=== PATIENT | female | born 1960 | race Caucasian/White ===

== ENCOUNTER 2022-02-18 10:57 | Emergency (ER) | payer MEDICAID, SELFPAY ==
[2022-02-18] VITALS (7 sets, daily range): BP systolic 141–179; BP diastolic 70–97; PULSE 81–101; RESP 16–20; TEMP 36.7–37.1; O2SAT 96–99; BMI 35.6; BMI 34.7
--- NOTE | 2022-02-18 11:41 | CT_ITS ---
FINAL REPORT CLINICAL HISTORY: Abdominal pain COMPARISON: None FINDINGS: CT OF THE ABDOMEN AND PELVIS WITH CONTRAST Axial CT images of the abdomen and pelvis were obtained after the administration of oral and iv contrast. Coronal reformatted images were also obtained and reviewed.This study was performed with techniques to keep radiation doses as low as reasonably achievable (ALARA). Individualized dose reduction techniques using automated exposure control or adjustment of mA and/or kV according to the patient's size were employed. Abdomen: The lung bases are clear. The heart is normal in size. The liver has an unremarkable appearance, without evidence of mass or biliary ductal dilatation. Gallstones are noted in the gallbladder. The spleen is unremarkable. No adrenal mass is present. The pancreas has an unremarkable appearance. The kidneys are normal, without evidence of mass or hydronephrosis. The aorta is normal in caliber. There is no free fluid or adenopathy. No mass or abnormal fluid collection is seen. Pelvis: The appendix unremarkable. The urinary bladder is unremarkable. No inflammatory process is seen. There is no evidence of mass or adenopathy. There is no evidence of bowel obstruction. IMPRESSION: Cholelithiasis. Reviewed, Interpreted and Dictated by Howard Saucedo III, MD Transcribed by Kelly Acevedo Authenticated and [facility]
--- NOTE | 2022-02-18 11:45 | HMH.EDGENADL ---
Discharge Plan Disposition Patient Disposition: Home, Self-Care Condition: Good Prescriptions Prescriptions: New chlordiazepoxide HCl 25 mg capsule 25 mg PO DIRECTED Qty: 15 0RF ondansetron 4 mg tablet,disintegrating 4 mg PO Q8H PRN (Reason: nausea and vomiting) Qty: 10 0RF Referrals Follow up/Referrals: Kimberly Diaz APRN [Primary Care Provider] - See instructions Activity Restrictions/Add. Instructions Additional Instructions/Restrictions: Chlordiazepoxide as prescribed for alcohol withdrawal. Do not drink alcohol while taking. Follow-up with primary care provider, call tomorrow to make appointment. Clinical Impressions Clinical Impression: Alcohol withdrawal syndrome Instructions Patient Instructions: DI for Drug or Alcohol Withdrawal, DI for Alcohol Use Disorder Discharge ED Provider: Junior Dinh General Adult HPI General Chief complaint: Alcohol Stated complaint: Shaking, possible gout in both legs Time Seen by Provider: 02/18/22 11:35 History of Present Illness HPI narrative: Patient states she thinks she is in alcohol withdrawal. States that she has been drinking a pint of liquor a day for the past couple of weeks and stopped drinking yesterday. Since yesterday afternoon she feels shaky, nausea and vomiting, abdominal pain, diffuse joint pains. Because of her diffuse joint pain she thinks I might be having gout attacks . States symptoms are similar to previous alcohol withdrawal. He says that she was clean for a while until she started drinking again recently. She has been through 2 different alcohol rehabilitation programs, but not for years. Denies drug use. Related Data Previous Rx's Medication Instructions Recorded chlordiazepoxide HCl 25 mg capsule 25 mg PO DIRECTED #15 caps 02/18/22 ondansetron 4 mg disintegrating 4 mg PO Q8H PRN nausea and 02/18/22 tablet vomiting #10 tabs Allergies Allergy/AdvReac Type Severity Reaction Status Date / Time No Known Allergies Allergy Verified 02/18/22 11:48 [facility] Disclaimer: The information contained in this section may have been updated after the patient was seen, as this information can be updated by other users. Social History Smoking Status: Never smoker ROS Obtained: Yes Systems reviewed as appropriate & no additional complaints except as documented Constitutional Constitutional: Reports as per HPI, Denies fever(s), Denies headache(s) and Denies weakness ENT Ears, Nose, Mouth, and Throat: Denies headache(s), Denies nasal discharge and Denies sore throat Cardiovascular Cardiovascular: Denies chest pain Respiratory Respiratory: Denies shortness of breath and Denies cough Gastrointestinal Gastrointestingal: Reports abdominal pain, nausea and vomiting; Denies constipation or diarrhea Genitourinary Female Genitourinary: Denies difficulty voiding, Denies dysuria and Denies flank pain Musculoskeletal Musculoskeletal: Reports arthralgias (Diffuse), Denies numbness and Reports other Neurologic Neurologic: Denies headache(s), Denies numbness and Denies weakness Physical Exam General General appearance: alert, in no apparent distress and anxious Comment: Mildly tremulous Head Head exam: atraumatic and normocephalic Eye Eye exam: Present normal appearance and EOMI ENT ENT exam: Present mucous membranes moist Neck Neck exam: Present normal inspection and trachea midline Chest Chest inspection: Present normal inspection and symmetric chest wall rise Respiratory Respiratory exam: Present normal lung sounds bilaterally; Absent respiratory distress Cardiovascular Cardiovascular exam: Present regular rate, normal rhythm and normal heart sounds Abdominal Exam Abdominal exam: Present soft and normal bowel sounds; Absent distention, tenderness, guarding, rebound or rigidity Extremities Exam Extremities exam: Present normal inspection and other (No inflammation, erythema, edema, or effusions of joints) Neurologi
[2022-02-18 11:55] LABS: Chloride 97 mmol/L (98-107); Sodium 136 mmol/L (136-145)
[2022-02-18 11:58] LABS: Alanine Aminotransferase 26 U/L (12-78); Albumin/Globulin Ratio 1.4 (1.1-1.8); Alkaline Phosphatase 109 U/L (38-126); Aspartate Amino Transferase 33 U/L (14-36); Blood Urea Nitrogen 10 mg/dl (7-17); Calcium 9.6 mg/dl (8.4-10.2); Carbon Dioxide 22 mmol/L (22.0-30.0); Creatinine Clearance Estimated 81 mL/min (50-200); Estimated Glomerular Filt Rate 73 ml/min (>60); Ethyl Alcohol 24 mg/dl (0-10); GFR (African American) 88 ML/MIN (>60); Globulin 3.7 g/dL (1.3-3.2); Glucose 136 mg/dl (74-100); Lipase 119 U/L (23-300); Total Protein,Serum 8.7 g/dl (6.3-8.2)
[2022-02-18 12:00] LABS: Basophils # 0.1 K/mm3 (0-0.2); Eosinophils # 0.1 K/mm3 (0.0-0.4); Eosinophils % 0.7 % (0.1-12.0); Hematocrit 45.8 % (37.0-47.0); Hemoglobin 15.1 g/dL (12.2-16.2); Lymphocytes # 1.3 K/mm3 (0.7-4.5); Lymphocytes % 18.1 % (10-50); Mean Corpuscular HGB Conc 32.9 g/dL (31.8-35.4); Mean Corpuscular Hemoglobin 31.7 pg (27.0-31.2); Mean Corpuscular Volume 96.3 fl (81-99); Mean Platelet Volume 7.7 fl (7.4-10.4); Monocytes # 0.3 K/mm3 (0.1-1.0); Monocytes % 4.2 % (1.7-9.3); Neutrophils # 5.5 K/mm3 (1.8-7.8); Platelet Count 430 K/mm3 (142-424); Red Blood Count 4.76 M/mm3 (4.20-5.40); Red Cell Distribution Width 14.7 % (11.5-17.5); White Blood Count 7.3 K/mm3 (4.8-10.8)
[2022-02-18 12:12] LABS: Troponin I < 0.01 ng/ml (0.00-0.034)
[2022-02-18 12:13] LABS: Opiate Screen,Urine Negative ng/ml (<300)
[2022-02-18 12:14] LABS: Phencyclidine Screen,Urine Negative ng/ml (<25)
[2022-02-18 12:19] LABS: Amphetamine/Metha Screen,Urine Negative ng/ml (<1000)
[2022-02-18 12:20] LABS: Barbiturates Screen,Urine Negative ng/ml (<200); Benzodiazepines Screen,Urine Negative ng/ml (<200)
[2022-02-18 12:21] LABS: Cannabinoid Screen,Urine Negative ng/ml (<50)
[2022-02-18 12:22] LABS: Cocaine Screen,Urine Negative ng/ml (<300); Methadone Screen,Urine Negative ng/ml (<300)
== END 2022-02-18 14:51 | disposition home or self-care (01) ==
PROVIDERS: Emergency Provider Emergency Medicine; PCP Nurse Practitioner Family
DX: F10.239 Alcohol dependence with withdrawal, unspecified (principal)
CPT/HCPCS: 74177; 80053; 80305; 83690; 84484; 85025; 96365; 96366; 96375; 99285; J2405; Q9967

== ENCOUNTER 2022-06-09 22:04 | Emergency (ER) | payer MEDICAID, SELFPAY ==
[2022-06-09 22:04] VITALS: BP 166/103; PULSE 92; RESP 20; TEMP 36.6; O2SAT 98; BMI 35.6
--- NOTE | 2022-06-09 22:12 | CT_ITS ---
PROCEDURE INFORMATION: Exam: CT Cervical Spine Without Contrast Exam date and time: 06/09/2022 10:24 PM Age: 61 years old Clinical indication: Injury or trauma; Fall TECHNIQUE: Imaging protocol: Computed tomography of the cervical spine without contrast. Radiation optimization: All CT scans at this facility use at least one of these dose optimization techniques: automated exposure control; mA and/or kV adjustment per patient size (includes targeted exams where dose is matched to clinical indication); or iterative reconstruction. REPORTING DATA: Count of CT and Cardiac NM exams in prior 12 months: This patient has received [address] and 0 known cardiac nuclear medicine studies in the 12 months prior to the current study. COMPARISON: No relevant prior studies available. FINDINGS: Bones/joints: Straightening of the curvature of the cervical spine is likely positional. Multilevel degenerative changes of the cervical spine producing multiple levels of mild spinal canal stenosis. Lungs: Lung apices are normal. Soft tissues: Unremarkable. IMPRESSION: No acute fracture or malalignment of the cervical spine.
--- NOTE | 2022-06-09 22:12 | XR_ITS ---
PROCEDURE INFORMATION: Exam: XR Left Knee Exam date and time: 06/09/2022 10:41 PM Age: 61 years old Clinical indication: Pain; Knee; Left; Additional info: Fall, pain, bruising TECHNIQUE: Imaging protocol: Radiologic exam of the left knee. Views: 1 or 2 views. COMPARISON: No relevant prior studies available. FINDINGS: Bones/joints: Normal. Soft tissues: Normal. IMPRESSION: No acute findings.
--- NOTE | 2022-06-09 22:12 | CT_ITS ---
PROCEDURE INFORMATION: Exam: CT Head Without Contrast Exam date and time: 06/09/2022 10:24 PM Age: 61 years old Clinical indication: Injury or trauma; Fall; Additional info: Fall, frontal hematoma TECHNIQUE: Imaging protocol: Computed tomography of the head without contrast. Radiation optimization: All CT scans at this facility use at least one of these dose optimization techniques: automated exposure control; mA and/or kV adjustment per patient size (includes targeted exams where dose is matched to clinical indication); or iterative reconstruction. REPORTING DATA: Count of CT and Cardiac NM exams in prior 12 months: This patient has received [address] and 0 known cardiac nuclear medicine studies in the 12 months prior to the current study. COMPARISON: No relevant prior studies available. FINDINGS: Brain: Right basal ganglia calcification. Mild to moderate chronic brain volume loss and chronic small vessel ischemic changes. Cerebral ventricles: No ventriculomegaly. Paranasal sinuses: Visualized sinuses are unremarkable. No fluid levels. Mastoid air cells: Visualized mastoid air cells are well aerated. Bones/joints: Unremarkable. No acute fracture. Soft tissues: Hematoma overlying the right frontal bone. IMPRESSION: No acute intracranial findings.
--- NOTE | 2022-06-09 22:14 | XR_ITS ---
PROCEDURE INFORMATION: Exam: XR Left Foot Exam date and time: 06/09/2022 10:41 PM Age: 61 years old Clinical indication: Pain; Foot; Left; Additional info: Fall, pain TECHNIQUE: Imaging protocol: Radiologic exam of the left foot. Views: 1 or 2 views. COMPARISON: No relevant prior studies available. FINDINGS: Bones/joints: There is a calcific density posterior/superior to the calcaneus measuring 2.5 cm suspicious for an avulsion fracture likely with associated distal Achilles tendon injury and chronic enthesopathy. There are mild degenerative changes in the foot. No other fracture. Soft tissues: Normal. IMPRESSION: Findings suspicious for an avulsion injury of the dorsal calcaneus likely with associated Achilles tendon injury. Correlate with clinical exam findings.
--- NOTE | 2022-06-09 22:14 | XR_ITS ---
PROCEDURE INFORMATION: Exam: XR Left Tibia and Fibula Exam date and time: 06/09/2022 10:41 PM Age: 61 years old Clinical indication: Injury or trauma; Fall; Blunt trauma; Lower leg; Left; Additional info: Fall, pain, bruising TECHNIQUE: Imaging protocol: Radiologic exam of the left tibia and fibula. Views: 2 views. COMPARISON: No relevant prior studies available. FINDINGS: Bones/joints: Nondisplaced fractures of the medial and lateral malleolus are again seen. No other fracture is identified. Soft tissues: Normal. IMPRESSION: Nondisplaced fractures of the medial and lateral malleolus are again seen. No other fracture is identified.
--- NOTE | 2022-06-09 22:14 | XR_ITS ---
PROCEDURE INFORMATION: Exam: XR Left Ankle Exam date and time: 06/09/2022 10:41 PM Age: 61 years old Clinical indication: Pain; Ankle; Left; Additional info: Fall, pain TECHNIQUE: Imaging protocol: Radiologic exam of the left ankle. Views: 3 or more views. COMPARISON: No relevant prior studies available. FINDINGS: Bones/joints: There is a nondisplaced fracture present in the medial malleolus. There is irregularity of the tip of the lateral malleolus also suspicious for nondisplaced fracture. Ankle joint effusion. Posterior calcaneal avulsion fracture is suspected likely with chronic enthesopathy. Soft tissues: Soft tissue swelling seen about the ankle. IMPRESSION: 1. Nondisplaced medial malleolus fracture with additional suspected nondisplaced fracture of the lateral malleolus. 2. Redemonstration of the posterior calcaneal suspected avulsion fracture.
--- NOTE | 2022-06-09 22:15 | HMH.EDGENADL ---
Discharge Plan Disposition Chief Complaint: Fall Prescriptions Prescriptions: No Action chlordiazepoxide HCl 25 mg capsule 25 mg PO DIRECTED Qty: 15 0RF ondansetron 4 mg tablet,disintegrating 4 mg PO Q8H PRN (Reason: nausea and vomiting) Qty: 10 0RF Clinical Impressions Clinical Impression: Concussion, Bimalleolar ankle fracture, Avulsion fracture of calcaneus, Fall Discharge ED Provider: Oral [facility] General Adult HPI General Chief complaint: Fall Stated complaint: Fall with leg pain Time Seen by Provider: 06/09/22 22:10 Mode of Arrival: EMS Source of Information: Patient Limitations: Physical Limitations Description of Symptoms (Recalled from ER Triage Doc. by RN): Pt took at fall down the steps at her house this evening around 2100. Pt complains of left ankle pain 11/17. Ankle is swollen and echomotic. Hx of nerve damage in left leg per pt. 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 Patient fell at the steps in her house at approximately 2100 this evening and attributes it due to her left lower extremity chronic neuropathy, no loss of consciousness. Patient states she has moderate to severe pain from her left knee down and noticed swelling over her right forehead. Patient denies neck pain, chest pain, abdominal pain, no other acute complaints at this time. Related Data Previous Rx's Medication Instructions Recorded chlordiazepoxide HCl 25 mg capsule 25 mg PO DIRECTED #15 caps 02/18/22 ondansetron 4 mg disintegrating 4 mg PO Q8H PRN nausea and 02/18/22 tablet vomiting #10 tabs Allergies Allergy/AdvReac Type Severity Reaction Status Date / Time No Known Allergies Allergy Verified 02/18/22 11:48 [facility] Disclaimer: The information contained in this section may have been updated after the patient was seen, as this information can be updated by other users. Social History Smoking Status: Never smoker alcohol intake: current current occupational status: other Travel in the last 8 weeks: None ROS Obtained: Yes Systems reviewed as appropriate & no additional complaints except as documented Physical Exam General General appearance: alert and in no apparent distress Head Head exam: normocephalic and other (Right forehead hematoma, closed) Eye Eye exam: Present PERRL and EOMI ENT ENT exam: Present mucous membranes moist Neck Neck exam: Present normal inspection and full ROM; Absent tenderness Chest Chest inspection: Present normal inspection and symmetric chest wall rise Respiratory Respiratory exam: Present normal lung sounds bilaterally; Absent respiratory distress Cardiovascular Cardiovascular exam: Present regular rate and normal rhythm Abdominal Exam Abdominal exam: Present soft; Absent tenderness or rigidity Extremities Exam Extremities exam: Present other (Bruising, swelling, tenderness over the left knee, tib-fib, ankle. Strength is 5 out of 5 at all joints in the left lower extremity. Palpable dorsal pedal pulse bilaterally) Neurological Exam Neurological exam: Present alert and oriented X3 Psychiatric Psychiatric exam: Present normal affect Skin Skin exam: Present warm and dry Medical Decision Making Scotty Inquiry Pt receiving controlled substance: No Vital Signs: 06/09/22 22:04 06/09/22 22:46 06/09/22 23:00 Temperature 97.8 F Temperature Source Oral Pulse Rate 95 H 78 Pulse Rate [Right] 92 H Respiratory Rate 20 Blood Pressure 173/82 H 123/70 Blood Pressure [Right Arm] 166/103 H Blood Pressure Mean [Right Arm] 124 Blood Pressure Source [Right Arm] Automatic Cuff Blood Pressure Position [Right Arm] Sitting 02 Sat by Pulse Oximetry 98 95 96 Oxygen Delivery Method Room Air 06/09/22 23:30 Temperature Temperature Source Pul
--- NOTE | 2022-06-09 22:16 | XR_ITS ---
PROCEDURE INFORMATION: Exam: XR Chest Exam date and time: 06/09/2022 10:41 PM Age: 61 years old Clinical indication: Injury or trauma; Fall; Blunt trauma (contusions or hematomas) TECHNIQUE: Imaging protocol: Radiologic exam of the chest. Views: 1 view. COMPARISON: CT CERVICAL SPINE WO CON 06/09/2022 10:24 PM FINDINGS: Lungs: Unremarkable. No consolidation. Pleural spaces: Unremarkable. No pleural effusion. No pneumothorax. Heart/Mediastinum: Unremarkable. No cardiomegaly. Bones/joints: Unremarkable. IMPRESSION: No acute findings.
--- NOTE | 2022-06-09 22:39 | PC.NURSE ---
Pt back in room from RAD
[2022-06-09 22:46] VITALS: BP 173/82; PULSE 95; O2SAT 95
[2022-06-09 23:00] VITALS: BP 123/70; PULSE 78; O2SAT 96
[2022-06-09 23:30] VITALS: BP 146/83; PULSE 97; O2SAT 96
--- NOTE | 2022-06-09 23:35 | PC.NURSE ---
Pt visitor came out of room and advised that pt was saying she was in severe pain. RN notified.
--- NOTE | 2022-06-10 00:13 | PC.NURSE ---
Called [facility] transfer center about possible transfer. Advised they would give us a call back.
[2022-06-10 00:25] LABS: Chloride 97 mmol/L (98-107); Potassium 4.5 mmoL/L (3.5-5.1); Sodium 140 mmol/L (136-145)
--- NOTE | 2022-06-10 00:25 | PC.NURSE ---
Pt accepted to [facility] by Dr. Cruz
[2022-06-10 00:26] LABS: Basophils # 0.1 K/mm3 (0-0.2); Basophils % 0.5 % (0.1-2.0); Eosinophils # 0.2 K/mm3 (0.0-0.4); Eosinophils % 1.1 % (0.1-12.0); Hematocrit 41.9 % (37.0-47.0); Hemoglobin 13.9 g/dL (12.2-16.2); Lymphocytes # 4.5 K/mm3 (0.7-4.5); Lymphocytes % 23.3 % (10-50); Mean Corpuscular HGB Conc 33.2 g/dL (31.8-35.4); Mean Corpuscular Hemoglobin 31.4 pg (27.0-31.2); Mean Corpuscular Volume 94.5 fl (81-99); Mean Platelet Volume 7.2 fl (7.4-10.4); Monocytes # 0.5 K/mm3 (0.1-1.0); Monocytes % 2.6 % (1.7-9.3); Neutrophils % 72.7 % (37.0-80.0); Platelet Count 514 K/mm3 (142-424); Red Blood Count 4.44 M/mm3 (4.20-5.40); White Blood Count 19.3 K/mm3 (4.8-10.8)
[2022-06-10 00:28] LABS: Anion Gap 17.5 mEq/L (5-15); Blood Urea Nitrogen 15 mg/dl (7-17); Calcium 8.7 mg/dl (8.4-10.2); Carbon Dioxide 30 mmol/L (22.0-30.0); Creatinine Clearance Estimated 81 mL/min (50-200); Estimated Glomerular Filt Rate 73 ml/min (>60); GFR (African American) 88 ML/MIN (>60); Glucose 105 mg/dl (74-100); MANUAL DIFFERENTIAL MANUAL DIFFERENTIAL (MANUAL DIFF)
[2022-06-10 00:40] LABS: Eosinophils % 3 % (0-3); Lymphocytes % 22 % (10-50); Monocytes % 3 % (2-9); Neutrophils % 72 % (42-76); Platelet Estimate Slight Increase; RBC Morphology Normal; Total Cells Counted 100
--- NOTE | 2022-06-10 00:40 | PC.NURSE ---
transfer record completed and signed. equipment to room for joint stabilization
--- NOTE | 2022-06-10 00:49 | PC.NURSE ---
Report called to [facility] ER to Sabino KENDALL
--- NOTE | 2022-06-10 01:42 | PC.NURSE ---
PT O2 sat dropped to mid 80s. MD notified. 2lpm nasal cannula applied per MD order
--- NOTE | 2022-06-10 01:50 | PC.NURSE ---
Insurance pre-auth faxed
[2022-06-10 02:45] VITALS: BP 178/80; PULSE 84; RESP 20; TEMP 36.8; O2SAT 99
== END 2022-06-10 03:06 | disposition short-term general hospital (02) ==
PROVIDERS: Emergency Provider Emergency Medicine
DX: S06.0X0A Concussion without loss of consciousness, initial encounter (principal); S82.845A Nondisplaced bimalleolar fracture of left lower leg, initial encounter for closed fracture; S92.032A Displaced avulsion fracture of tuberosity of left calcaneus, initial encounter for closed fracture; W10.9XXA Fall (on) (from) unspecified stairs and steps, initial encounter
CPT/HCPCS: 29515; 70450; 71045; 72125; 73560; 73590; 73610; 73620; 80048; 85007; 85025; 96374; 96375; 96376; 99285

== ENCOUNTER 2023-06-01 11:59 | Outpatient (CLI) | payer MEDICAID, SELFPAY ==
[2023-06-01 13:06] LABS: Iron 71 ug/dL (37-170)
[2023-06-01 13:15] LABS: Total Iron Binding Capacity 363 ug/dL (265-497)
[2023-06-01 13:42] LABS: Ferritin 16.5 ng/ml (11.1-264)
== END 2023-06-01 23:59 | disposition home or self-care (01) ==
LOC: LAB 12:00
PROVIDERS: PCP Nurse Practitioner Family; Visit Provider Internal Medicine Medical Oncology
DX: E61.1 Iron deficiency (principal)
CPT/HCPCS: 36415; 82728; 83540; 83550